=== PATIENT | female | born 1955 | race African-American/Black ===

== ENCOUNTER 2019-05-08 14:41 | Emergency (ER) | payer OTHER ==
[~2019-05-08] VITALS: Ht 167.6 cm; Wt 75.7 kg
--- NOTE | 2019-05-08 16:54 | Diagnostic Imaging Report ---
Left humerus- 2 Views HISTORY: Fall COMPARISON: None FINDINGS: 2 views of the left humerus demonstrate no acute fracture or dislocation. Alignment is anatomic. The soft tissues appear unremarkable. The visualized portions of the left lung appear unremarkable. IMPRESSION: No acute osseous injury. Signed by: Yolanda Baldwin MD on 05/08/2019 4:51 PM
--- NOTE | 2019-05-08 16:57 | Diagnostic Imaging Report ---
Exam: Left foot series, 3 views. Clinical History: Fall Comparison: None Findings: No acute fracture or dislocation. Mild soft tissue swelling at the dorsum of the foot. No substantial degenerative change. Plantar calcaneal spur. Impression: No acute osseous injury. Signed by: Yolanda Baldwin MD on 05/08/2019 4:53 PM
[2019-05-08 17:11] VITALS: BP 152/81
== END 2019-05-08 17:23 | disposition home or self-care (01) ==
LOC: FSED 14:41
DX: S40.022A Contusion of left upper arm, initial encounter (principal); S70.02XA Contusion of left hip, initial encounter; S90.32XA Contusion of left foot, initial encounter; W18.30XA Fall on same level, unspecified, initial encounter; Y92.008 Other place in unspecified non-institutional (private) residence as the place of occurrence of the external cause
CPT/HCPCS: 99283